=== PATIENT | female | born 1965 | race Caucasian/White ===

== ENCOUNTER 2017-01-31 01:54 | Emergency (ER) | payer OTHER ==
[~2017-01-31] VITALS: Ht 177.8 cm; Wt 103.0 kg
[2017-01-31 01:56] VITALS: BP 169/94; PULSE 86; RESP 16; TEMP 98.9; O2SAT 97
[2017-01-31] MEDS ORDERED: AMLO10TA2 PO (02:00)
[2017-01-31 02:07] VITALS: BP 155/90; PULSE 87; O2SAT 99
[2017-01-31] MEDS ORDERED: SODIUM CHLOR 0.9% 1000 ML INJ 1,000 ML IV SCH (02:17)
[2017-01-31] MEDS ORDERED: ALLE10TA PO (02:18)
--- NOTE | 2017-01-31 02:24 | PD ---
HPI Chief Complaint: Abdominal Pain Time Seen by Provider: 02:06 Travel History International Travel<30 days: No Contact w/Intl Traveler<30days: No Traveled to known affect area: No History of Present Illness HPI The patient is a 51-year-old female who presents to the emergency department via private vehicle for abdominal pain. The patient states she developed abdominal pain approximately 10 PM, was unable to get comfortable and fall asleep. The pain is located in the upper aspect of the abdomen, radiates up the substernal area, dull and burning, associated with nausea but no vomiting. She does complain of mild shortness of breath but denies any upper chest pain. The patient does have a history of hypertension, denies any history of coronary artery disease, hyperlipidemia, tobacco use, or diabetes. 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 She denies any history pancreatitis, biliary colic, gastritis, or peptic ulcer disease. The symptoms are moderate without any alleviating or exacerbating factors. PFSH Past Medical History Diabetes: No Patient Takes Glucophage: No Hypertension: Yes ?: Not LMP: 01/31/17 Past Surgical History Other Surgery: Yes (fibroidadenoma) Social History Alcohol Use: No Tobacco Use: No Substance Use: No Allergies-Medications (Allergen,Severity, Reaction): Coded Allergies: No Known Allergies (Verified Allergy, Unknown, 01/31/17) Reported Meds & Prescriptions Reported Meds & Active Scripts Active Reported Allergy Relief (Loratadine) 10 Mg Tab 10 Mg PO DAILY Amlodipine (Amlodipine Besylate) 10 Mg Tab 10 Mg PO DAILY Review of Systems Except as stated in HPI: all other systems reviewed are Neg General / Constitutional: No: Fever Cardiovascular: No: Chest Pain or Discomfort Respiratory: Positive: Shortness of Breath Gastrointestinal: Positive: Nausea, Abdominal Pain, No: Vomiting, Diarrhea Genitourinary: No: Dysuria Physical Exam Narrative GENERAL: Awake, alert, pleasant 51-year-old female who appears her stated age and is in no acute respiratory distress. SKIN: Focused skin assessment warm/dry. HEAD: Atraumatic. Normocephalic. EYES: Pupils equal and round. No scleral icterus. No injection or drainage. ENT: No nasal bleeding or discharge. Mucous membranes pink and moist. NECK: Trachea midline. No JVD. CARDIOVASCULAR: Regular rate and rhythm. No murmur appreciated. RESPIRATORY: No accessory muscle use. Clear to auscultation. Breath sounds equal bilaterally. GASTROINTESTINAL: Abdomen soft, minimal bilateral upper quadrant tenderness, no rebound tenderness or guarding. MUSCULOSKELETAL: No obvious deformities. No clubbing. No cyanosis. No edema. NEUROLOGICAL: Awake and alert. No obvious cranial nerve deficits. Motor grossly within normal limits. Normal speech. PSYCHIATRIC: Appropriate mood and affect; insight and judgment normal. Data Data Last Documented VS Vital Signs Date Time Temp Pulse Resp B/P (MAP) Pulse Ox O2 Delivery O2 Flow Rate FiO2 01/31/17 02:48 98 Room Air 01/31/17 02:07 87 01/31/17 01:56 98.9 16 Orders Orders Complete Blood Count With Diff (01/31/17 02:17) Comprehensive Metabolic Panel (01/31/17 02:17) Lipase (01/31/17 02:17) Lactic Acid (01/31/17 02:17) Urinalysis - C+S If Indicated (01/31/17 02:17) Ct Abd/Pel W Iv Contrast(Rout) (01/31/17 02:17) Iv Access Insert/Monitor (01/31/17 02:17) Ecg Monitoring (01/31/17 02:17) Oximetry (01/31/17 02:17) Morphine Inj (Morphine Inj) (01/31/17 02:30) Ondansetron Inj (Zofran Inj) (01/31/17 02:30) Sodium Chlor 0.9% 1000 Ml Inj (Ns 1000 M (01/31/17 02:17) Sodium Chloride 0.9% Flush (Ns Flush) (01/31/17 02:30) Chest, Single Ap (01/31/17 02:17) Famotidine Inj (Pepcid Inj) (01/31/17 02:30) Al-Mag Hy-Si 40-40-4 Mg/Ml Liq (Mag-Al P (01/31/17 02:30) Lidocaine 2% Viscous (Xylocaine 2% Visco (01/31/17 02:30) Troponin I (01/31/17 02:17) Creatine Kinase (Cpk) (01/31/17 02:17) Iohexol 350 Inj (Omnipaque 350 Inj) (01/31/17 03:37) Labs Laboratory Tests Test 01/31/17 02:25 White Blood Count 12.8 TH/MM3 Red Blood Count 4.86 MIL/MM3 Hemoglobin 13.7 GM/DL Hematocrit 40.8 % Mean Corpuscular Volume 84.0 FL Mean Corpuscular Hemoglobin 28.2 PG Mean Corpuscular Hemoglobin Concent 33.6 % Red Cell Distribution Width 14.3 % Platelet Count 283 TH/MM3 Mean Platelet Volume 8.6 FL Neutrophils (%) (Auto) 64.7 % Lymphocytes (%) (Auto) 26.0 % Monocytes (%) (Auto) 7.4 % Eosinophils (%) (Auto) 1.5 % Basophils (%) (Auto) 0.4 % Neutrophils # (Auto) 8.3 TH/MM3 Lymphocytes # (Auto) 3.3 TH/MM3 Monocytes # (Auto) 0.9 TH/MM3 Eosinophils # (Auto) 0.2 TH/MM3 Basophils # (Auto) 0.0 TH/MM3 CBC Comment DIFF FINAL Differential Comment Urine Color LIGHT-YELLOW Urine Turbidity CLEAR Urine pH 5.5 Urine Specific [place] 1.017 Urine Protein NEG mg/dL Urine Glucose (UA) NEG mg/dL Urine Ketones NEG mg/dL Urine Occult Blood MOD Urine Nitrite NEG Urine Bilirubin NEG Urine Urobilinogen LESS THAN 2.0 MG/DL Urine Leukocyte Esterase NEG Urine RBC LESS THAN 1 /hpf Urine WBC 1 /hpf Urine Squamous Epithelial Cells <1 /hpf Urine Bacteria RARE /hpf Urine Mucus FEW /lpf Microscopic Urinalysis Comment CULT NOT INDICATED Blood Urea Nitrogen 15 MG/DL Creatinine 0.67 MG/DL Random Glucose 103 MG/DL Total Protein 6.8 GM/DL Albumin 3.2 GM/DL Calcium Level 8.4 MG/DL Alkaline Phosphatase 90 U/L Aspartate Amino Transf (AST/SGOT) 13 U/L Alanine Aminotransferase (ALT/SGPT) 20 U/L Total Bilirubin 0.3 MG/DL Sodium Level 139 MEQ/L Potassium Level 3.8 MEQ/L Chloride Level 105 MEQ/L Carbon Dioxide Level 25.2 MEQ/L Anion Gap 9 MEQ/L Estimat Glomerular Filtration Rate 92 ML/MIN Lactic Acid Level 1.2 mmol/L Total Creatine Kinase 35 U/L Troponin I LESS THAN 0.02 NG/ML Lipase 107 U/L [facility] Medical Decision Making Medical Screen Exam Complete: Yes Emergency Medical Condition: Yes Medical Record Reviewed: Yes Interpretation(s) EKG reveals normal sinus rhythm with a rate 85. No ischemic changes or ectopy noted. Laboratory Tests Test 01/31/17 02:25 White Blood Count 12.8 TH/MM3 Red Blood Count 4.86 MIL/MM3 Hemoglobin 13.7 GM/DL Hematocrit 40.8 % Mean Corpuscular Volume 84.0 FL Mean Corpuscular Hemoglobin 28.2 PG Mean Corpuscular Hemoglobin Concent 33.6 % Red Cell Distribution Width 14.3 % Platelet Count 283 TH/MM3 Mean Platelet Volume 8.6 FL Neutrophils (%) (Auto) 64.7 % Lymphocytes (%) (Auto) 26.0 % Monocytes (%) (Auto) 7.4 % Eosinophils (%) (Auto) 1.5 % Basophils (%) (Auto) 0.4 % Neutrophils # (Auto) 8.3 TH/MM3 Lymphocytes # (Auto) 3.3 TH/MM3 Monocytes # (Auto) 0.9 TH/MM3 Eosinophils # (Auto) 0.2 TH/MM3 Basophils # (Auto) 0.0 TH/MM3 CBC Comment DIFF FINAL Differential Comment Urine Color LIGHT-YELLOW Urine Turbidity CLEAR Urine pH 5.5 Urine Specific [place] 1.017 Urine Protein NEG mg/dL Urine Glucose (UA) NEG mg/dL Urine Ketones NEG mg/dL Urine Occult Blood MOD Urine Nitrite NEG Urine Bilirubin NEG Urine Urobilinogen LESS THAN 2.0 MG/DL Urine Leukocyte Esterase NEG Urine RBC LESS THAN 1 /hpf Urine WBC 1 /hpf Urine Squamous Epithelial Cells <1 /hpf Urine Bacteria RARE /hpf Urine Mucus FEW /lpf Microscopic Urinalysis Comment CULT NOT INDICATED Blood Urea Nitrogen 15 MG/DL Creatinine 0.67 MG/DL Random Glucose 103 MG/DL Total Protein 6.8 GM/DL Albumin 3.2 GM/DL Calcium Level 8.4 MG/DL Alkaline Phosphatase 90 U/L Aspartate Amino Transf (AST/SGOT) 13 U/L Alanine Aminotransferase (ALT/SGPT) 20 U/L Total Bilirubin 0.3 MG/DL Sodium Level 139 MEQ/L Potassium Level 3.8 MEQ/L Chloride Level 105 MEQ/L Carbon Dioxide Level 25.2 MEQ/L Anion Gap 9 MEQ/L Estimat Glomerular Filtration Rate 92 ML/MIN Lactic Acid Level 1.2 mmol/L Total Creatine Kinase 35 U/L Troponin I LESS THAN 0.02 NG/ML Lipase 107 U/L CT of the abdomen and pelvis reveals mural thickening and mild stranding of fat around the proximal duodenum most characteristic of a duodenitis. No obstruction, free fluid, or free air. Questionable uterine fibroids with nabothian cyst also noted. Second scribe fatty mass in the left adnexa, likely a small ovarian dermoid measuring 1.9 centimeters Differential Diagnosis Differential diagnosis includes gastritis, peptic ulcer disease, pancreatitis, AAA, biliary colic, cholecystitis, inferior myocardial infarction, pneumonia, transverse colon colitis/diverticulitis. Narrative Course IV was established, labs were drawn and sent, and the patient was placed on cardiac telemetry monitoring and continuous pulse oximetry monitoring. The patient was administered morphine, Zofran, Pepcid, GI cocktail, and IV fluids. Chest x-ray was obtained. CT of the abdomen and pelvis with IV contrast was ordered. The patient's white count is minimally elevated at 12.8. LFTs and lipase are unremarkable. UA is negative for infection. CT reveals mural thickening and mild stranding of fat around the proximal duodenum most characteristic of a duodenitis. The patient was reevaluated at 4:05 AM, her symptoms had significantly improved with a GI cocktail. The patient may have underlying duodenitis/gastritis with mild reflux. I will place the patient on an H2 leopoldo twice a day, she will be provided a copy of her CT results and lab results, she is advised to follow-up with her primary physician and/or gastroenterology on an outpatient basis if symptoms persist that she may benefit from outpatient EGD. The patient agrees and understands. Diagnosis Primary Impression: Duodenitis Patient Instructions: General Instructions Additional Instructions: Please provide the patient a copy of her labs and CT results at discharge. Zantac as directed. Follow-up with her primary physician and/or gastroenterology if symptoms persist as he may benefit from an EGD. Return if symptoms worsen or progress. Med/Other Pt SpecificInfo: Prescription(s) given Scripts Ranitidine (Zantac 150 Maximum Strength) 150 Mg Tab 150 MG PO BID for 60 Days, TAB Prov: Mikey Alas MD 01/31/17 Disposition: 01 DISCHARGE HOME Condition: Stable Mikey Alas MD Jan 31, 2017 02:24
[2017-01-31] MEDS ORDERED: ALUMINUM/MAGNESIUM/SIMETH 30 ML CUP PO ONE (02:30)
[2017-01-31] MEDS ORDERED: MORPHINE SULFATE 4 MG/ML INJ IV PUSH ONE (02:30)
[2017-01-31] MEDS ORDERED: FAMOTIDINE 20 MG/2 ML VIAL IV PUSH ONE (02:30)
[2017-01-31] MEDS ORDERED: ONDANSETRON HCL 4 MG/2 ML VIAL IVP ONE (02:30)
[2017-01-31] MEDS ORDERED: LIDOCAINE VISCOUS 2% SOLN 15 ML UDC PO ONE (02:30)
[2017-01-31] MEDS ORDERED: SODIUM CHLORIDE 0.9% FLUSH 10 ML FLUSH IV FLUSH PRN (02:30)
[2017-01-31 02:45] LABS: BACTERIA, URINE RARE /hpf; BLOOD, URINE MOD (NEG); GLUCOSE,URINE NEG (NEG); KETONE, URINE NEG (NEG); MUCUS URINE FEW /lpf (OCC); NITRITE,URINE NEG (NEG); PH, URINE 5.5 (5.0-8.5); SQUAMOUS EPITHELIAL CELL URINE <1 /hpf (0-5); URINE COLOR LIGHT-YELLOW (YELLW/STRAW)
[2017-01-31 02:48] VITALS: O2SAT 98
[2017-01-31 02:49] LABS: COMMENT (UR) CULT NOT INDICATED; CULTURE IF INDICATED CULT NOT INDICATED
[2017-01-31 02:51] LABS: AUTOMATED NEUTROPHIL # 8.3 TH/MM3 (1.8-7.7); BASOPHIL % 0.4 % (0.0-2.0); EOSINOPHIL # 0.2 TH/MM3 (0-0.4); EOSINOPHIL % 1.5 % (0.0-4.0); HEMATOCRIT 40.8 % (35.0-46.0); HEMO FLAGS DIFF FINAL; LYMPHOCYTE # 3.3 TH/MM3 (1.0-4.8); MEAN CORPUSCULAR HEMOGLOBIN 28.2 PG (27.0-34.0); MEAN CORPUSCULAR HGB CONC 33.6 % (32.0-36.0); MONO % 7.4 % (0.0-8.0); NEUT % 64.7 % (16.0-70.0); PLATELET COUNT 283 TH/MM3 (150-450); RED BLOOD COUNT 4.86 MIL/MM3 (4.00-5.30); RED CELL DISTRIBUTION WIDTH 14.3 % (11.6-17.2); WHITE BLOOD COUNT 12.8 TH/MM3 (4.0-11.0)
[2017-01-31 03:13] LABS: ALT (GPT) 20 U/L (10-53); ANION GAP 9 MEQ/L (5-15); AST (GOT) 13 U/L (15-37); BICARBONATE 25.2 MEQ/L (21.0-32.0); BLOOD UREA NITROGEN 15 MG/DL (7-18); CHLORIDE 105 MEQ/L (98-107); GLOMERULAR FILTRATION RATE 92 ML/MIN (>89); POTASSIUM 3.8 MEQ/L (3.5-5.1); SODIUM (NA) 139 MEQ/L (136-145)
--- NOTE | 2017-01-31 03:14 | RADRPT ---
EXAM DATE/TIME: 01/31/2017 02:32 [facility] COMPARISON: No previous studies available for comparison. INDICATIONS : Chest pain. MEDICAL HISTORY : None. SURGICAL HISTORY : None. ENCOUNTER: Initial ACUITY: 1 day PAIN SCORE: 0/10 LOCATION: Bilateral chest FINDINGS: A single view of the chest demonstrates the lungs to be symmetrically aerated without evidence of mas s, infiltrate or effusion. The cardiomediastinal contours are unremarkable. Osseous structures are intact. CONCLUSION: No acute disease. Ethan Walker MD on January 31, 2017 at 3:12 Board Certified Radiologist. This report was verified electronically.
[2017-01-31 03:18] LABS: ALKALINE PHOSPHATASE 90 U/L (45-117); TOTAL BILIRUBIN ADULT 0.3 MG/DL (0.2-1.0)
[2017-01-31 03:27] LABS: CREATINE KINASE 35 U/L (26-192)
[2017-01-31] MEDS ORDERED: IOHEXOL 350 MG/ML 10 ML VIAL (for RAD DIAG) IVCONTRAST ONE (03:37)
--- NOTE | 2017-01-31 03:59 | RADRPT ---
EXAM DATE/TIME: 01/31/2017 03:34 [facility] COMPARISON: No previous studies available for comparison. INDICATIONS : Diffuse abdominal pain. IV CONTRAST: 95 cc Omnipaque 350 (iohexol) IV ORAL CONTRAST: No oral contrast ingested. RADIATION DOSE: 15.64 CTDIvol (mGy) MEDICAL HISTORY : Hypertension. SURGICAL HISTORY : None. ENCOUNTER: Initial ACUITY: 1 day PAIN SCALE: 6/10 LOCATION: Bilateral abdomen TECHNIQUE: Volumetric scanning of the abdomen and pelvis was performed. Using automated exposure control and ad justment of the mA and/or kV according to patient size, radiation dose was kept as low as reasonably achievable to obtain optimal diagnostic quality images. DICOM format image data is available electro nically for review and comparison. FINDINGS: Lung bases are clear. Mild fatty liver. Spleen, adrenals, kidneys and pancreas intact. There is some mural thickening of the first and second portions of the duodenum with a small amount o f periduodenal fat stranding. The findings are characteristic of a duodenitis. There is no associated obstruction. No free air or significant free fluid. Uterus has a lobulated appearance, probably fibr oid involvement with a suspected nabothian cysts also present. 1.9 cm fatty lesion in the left adnexa likely a small dermoid. CONCLUSION: 1. Mural thickening and mild stranding of fat around the proximal duodenum most characteristic of a d uodenitis. No obstruction, free fluid or free air. 2. Questionable uterine fibroids with nabothian cyst also noted. 3. Circumscribed fatty mass in the left adnexa, likely a small ovarian dermoid measuring 1.9 cm. Ethan Walker MD on January 31, 2017 at 3:52 Board Certified Radiologist. This report was verified electronically.
[2017-01-31] MEDS ORDERED: ZANTTAB PO (04:15)
--- NOTE | 2017-01-31 13:34 | EKG ---
Date Performed: 01/31/2017 Time Performed: 02:11:01 PTAGE: 51 years EKG: Sinus rhythm NORMAL ECG NO PREVIOUS TRACING DOCTOR: Dasha Lees Interpretating Date/Time 01/31/2017 13:31:46
== END 2017-01-31 04:23 | disposition home or self-care (01) ==
LOC: NEPE 01:54
DX: K29.80 Duodenitis without bleeding (principal); I10 Essential (primary) hypertension
CPT/HCPCS: 71010; 74177; 80053; 81001; 82550; 83605; 83690; 84484; 85025; 93005; 96361; 96374; 96375; 99285; J2405; J7030; Q9967